=== PATIENT | female | born 1930 | race Caucasian/White ===

== ENCOUNTER 2016-09-26 21:18 | Observation (INO) | payer MEDICARE, OTHER ==
[~2016-09-26] VITALS: Ht 167.6 cm; Wt 89.2 kg
[2016-09-26 21:31] VITALS: BP 152/77; PULSE 72; RESP 20; TEMP 97.9; O2SAT 94
[2016-09-26] MEDS ORDERED: ONDANSETRON HCL 4 MG/2 ML VIAL IVP ONE (22:00)
[2016-09-26] MEDS ORDERED: SODIUM CHLORIDE 0.9% FLUSH 10 ML FLUSH IV FLUSH PRN (22:00)
--- NOTE | 2016-09-26 22:02 | PD ---
HPI Chief Complaint: GI Complaint Time Seen by Provider: 21:52 Travel History International Travel<30 days: No Contact w/Intl Traveler<30days: No Traveled to known affect area: No History of Present Illness HPI 86-year-old female with history of hypertension dyslipidemia and hypothyroidism presents to the emergency department by private transportation for evaluation of nausea abdominal pain and dizziness. Patient has been having ongoing nausea and dizziness and intermittent abdominal pain 2 weeks. Patient reports 2 weeks ago on Saturday she had such severe nausea that she decided to go to bed and have a ball at her bedside in case she vomited and she did this during the daytime and awakened on her floor beside her bed during the night time thinking that she must have had loss of consciousness. Patient states she was very concerned but did not seek out medical attention. Patient states symptoms have persisted and this evening symptoms again return to the severity to her she felt a skin is if she might have a syncopal episode but did not do so. Patient contacted her friend to bring her to the emergency room. Patient reports when her abdominal pain is severe it is generalized and 8/10 in intensity. Patient states her nausea is quite severe and present at this time but denies any chest pain or abdominal pain or back pain. Pain is nonradiating. Patient states she' s experienced no chest pain or shortness of breath sweats referred neck jaw back shoulder or arm pain and denies any syncope or near syncope at this time. No recent long distance travel protracted bedrest. Patient has not noticed any lower extremity pain or swelling. Patient denies any fever or chills. Patient denies diarrhea. Patient states she's had no vomiting. Patient states she has felt bloated and has had no weight gain or weight loss. Patient denies dysuria frequency or urgency. Patient denies any palpitations. Patient is unable to identify exacerbating or alleviating factors except that when she does eat or drink anything her symptoms seem to worsen. Patient has not experienced any confusion visual disturbance headache upper or lower extremity numbness tingling or weakness or ataxia of gait. Currently symptoms and discomfort are 0 /10 intensity. PFSH Past Medical History Narrative Medical Hypertension dyslipidemia hypothyroidism; denies surgery; no tobacco use no alcohol use; nursing notes reviewed Social History Alcohol Use: No Tobacco Use: No Allergies-Medications (Allergen,Severity, Reaction): Coded Allergies: No Known Allergies (Unverified , 09/26/16) Reported Meds & Prescriptions Reported Meds & Active Scripts Active Reported B12 (Cyanocobalamin) 1,000 Mcg Tab 1,000 Mcg PO DAILY Fish Oil ([place]-3 Fatty Acids) 1,000 Mg Cap 1,000 Mg PO DAILY [Cholesterol Med] 1 Tab PO DAILY Levothyroxine (Levothyroxine Sodium) 88 Mcg Tab 88 Mcg PO DAILY [Blood Pressure Med] 1 Tab PO DAILY Narrative Medication Blood pressure medication and cholesterol medication Synthroid Review of Systems Except as stated in HPI: all other systems reviewed are Neg General / Constitutional: No: Fever, Chills Eyes: No: Visual changes HENT: No: Headaches, Neck Stiffness, Neck Pain Cardiovascular: Positive: Syncope, No: Chest Pain or Discomfort, Palpitations , Diaphoresis Respiratory: No: Shortness of Breath, Orthopnea, Pleuritic Pain Gastrointestinal: Positive: Nausea, Abdominal Pain, No: Vomiting, Diarrhea, Hematemesis, Hematochezia, Loss of Appetite Genitourinary: No: Urgency, Frequency, Dysuria, Flank Pain Musculoskeletal: No: Myalgias, Arthralgias, Edema, Pain Skin: No Rash Neurologic: Positive: Weakness, Syncope (times one 2 weeks ago), No: Dizziness , Focal Abnormalities, Tremor, Ataxia, Headache, Change in Mentation, Slurred Speech, Paresthesia, Incontinence, Seizures, Sensory Disturbance Psychiatric: No: Anxiety Endocrine: No: Heat Intolerance Hematologic/Lymphatic: No: Easy Bruising Physical Exam Narrative GENERAL: Well-developed well-nourished female in no acute distress no respiratory distress SKIN: Warm and dry. HEAD: Atraumatic. Normocephalic. EYES: Pupils equal and round. No scleral icterus. No injection or drainage. ENT: No nasal bleeding or discharge. Mucous membranes pink and moist. NECK: Trachea midline. No JVD. CARDIOVASCULAR: Regular rate and rhythm. RESPIRATORY: No accessory muscle use. Clear to auscultation. Breath sounds equal bilaterally. GASTROINTESTINAL: Abdomen soft, non-tender, nondistended. Hepatic and splenic margins not palpable. No palpable pulsatile mass. MUSCULOSKELETAL: Extremities without clubbing, cyanosis, or edema. No obvious deformities. Radial and dorsalis pedis pulses 2+ to palpation. NEUROLOGICAL: Awake and alert. No obvious cranial nerve deficits. Motor grossly within normal limits. Five out of 5 muscle strength in the arms and legs. Normal speech. PSYCHIATRIC: Appropriate mood and affect; insight and judgment normal. Data Data Last Documented VS Vital Signs Date Time Temp Pulse Resp B/P Pulse Ox O2 Delivery O2 Flow Rate FiO2 09/26/16 23:45 58 18 171/76 94 Room Air 09/26/16 21:31 97.9 Orders Complete Blood Count With Diff (09/26/16 21:53) Comprehensive Metabolic Panel (09/26/16 21:53) Lipase (09/26/16 21:53) Lactic Acid (09/26/16 21:53) Prothrombin Time / Inr (Pt) (09/26/16 21:53) Act Partial Throm Time (Ptt) (09/26/16 21:53) Urinalysis - C+S If Indicated (09/26/16 21:53) Ct Abd/Pel W Iv Contrast(Rout) (09/26/16 21:53) Iv Access Insert/Monitor (09/26/16 21:53) Ecg Monitoring (09/26/16 21:53) Oximetry (09/26/16 21:53) Ondansetron Inj (Zofran Inj) (09/26/16 22:00) Sodium Chloride 0.9% Flush (Ns Flush) (09/26/16 22:00) Electrocardiogram (09/26/16 21:53) Chest, Single Ap (09/26/16 21:53) Orthostatic Vital Signs (09/26/16 21:53) Ct Brain W/O Iv Contrast(Rout) (09/26/16 ) Magnesium (Mg) (09/26/16 21:53) Ckmb (Isoenzyme) Profile (09/26/16 21:53) Troponin I (09/26/16 21:53) Iohexol 350 Inj (Omnipaque 350 Inj) (09/26/16 23:13) Place In Observation (09/26/16 ) Vital Signs (Adult) Q4H (09/26/16 23:56) Activity Oob With Assistance (09/26/16 23:56) Gum Machine Operator / Telemetry .CONTINUOUS (09/26/16 23:56) Intake + Output ALEENA.QSHIFT (09/26/16 23:56) Diet Heart Healthy (09/27/16 Breakfast) Sodium Chloride 0.9% Flush (Ns Flush) (09/27/16 00:00) Sodium Chloride 0.9% Flush (Ns Flush) (09/27/16 09:00) Basic Metabolic Panel (Bmp) (09/27/16 06:00) Complete Blood Count With Diff (09/27/16 06:00) Pt Request For Service (09/26/16 23:56) Case Management Consult (09/26/16 23:56) Naloxone Inj (Narcan Inj) (09/27/16 00:00) Consult Gastroenterology (09/26/16 ) Admit Order (Ed Use Only) (09/26/16 ) ^ Saline Lock (09/26/16 23:59) Resp Oxygen Saw C Titrat 1-4 L (09/26/16 ) Notify Dr: Other (09/26/16 23:59) Sodium Chloride 0.9% Flush (Ns Flush) (09/27/16 09:00) Sodium Chloride 0.9% Flush (Ns Flush) (09/27/16 00:00) Labs Laboratory Tests Test 09/26/16 22:25 White Blood Count 10.7 TH/MM3 Red Blood Count 4.77 MIL/MM3 Hemoglobin 14.6 GM/DL Hematocrit 43.8 % Mean Corpuscular Volume 91.8 FL Mean Corpuscular Hemoglobin 30.6 PG Mean Corpuscular Hemoglobin 33.4 % Concent Red Cell Distribution Width 13.8 % Platelet Count 240 TH/MM3 Mean Platelet Volume 9.2 FL Neutrophils (%) (Auto) 62.8 % Lymphocytes (%) (Auto) 25.6 % Monocytes (%) (Auto) 6.5 % Eosinophils (%) (Auto) 2.8 % Basophils (%) (Auto) 2.3 % Neutrophils # (Auto) 6.8 TH/MM3 Lymphocytes # (Auto) 2.7 TH/MM3 Monocytes # (Auto) 0.7 TH/MM3 Eosinophils # (Auto) 0.3 TH/MM3 Basophils # (Auto) 0.2 TH/MM3 CBC Comment DIFF FINAL Differential Comment Prothrombin Time 10.6 SEC Prothromb Time International 1.0 RATIO Ratio Activated Partial 28.6 SEC Thromboplast Time Sodium Level 137 MEQ/L Potassium Level 4.2 MEQ/L Chloride Level 105 MEQ/L Carbon Dioxide Level 23.6 MEQ/L Anion Gap 8 MEQ/L Blood Urea Nitrogen 13 MG/DL Creatinine 0.68 MG/DL Estimat Glomerular Filtration 82 ML/MIN Rate Random Glucose 128 MG/DL Lactic Acid Level 0.9 mmol/L Calcium Level 9.5 MG/DL Magnesium Level 2.2 MG/DL Total Bilirubin 0.4 MG/DL Aspartate Amino Transf 33 U/L (AST/SGOT) Alanine Aminotransferase 37 U/L (ALT/SGPT) Alkaline Phosphatase 76 U/L Total Creatine Kinase 36 U/L Troponin I LESS THAN 0.02 NG/ML Total Protein 8.3 GM/DL Albumin 3.6 GM/DL Lipase 209 U/L MDM Medical Decision Making Medical Screen Exam Complete: Yes Emergency Medical Condition: Yes Medical Record Reviewed: Yes Interpretation(s) EKG: Normal sinus rhythm rate 60 LAD interventricular conduction delay no acute ST elevation or injury pattern noted Vital Signs Date Time Temp Pulse Resp B/P Pulse Ox O2 Delivery O2 Flow Rate FiO2 09/26/16 22:56 60 14 160/81 57 16 137/72 71 115/63 09/26/16 22:30 60 18 145/82 96 Room Air 09/26/16 22:30 96 Room Air 09/26/16 21:31 97.9 72 20 152/77 94 CBC & BMP Diagram 09/26/16 22:25 Last Impressions Chest X-Ray 09/26/16 2153 Signed Impressions: Service Date/Time: Monday, September 26, 2016 22:00 - CONCLUSION: The lungs are clear. Rico Chaudhary MD Head CT 09/26/16 0000 Signed Impressions: Service Date/Time: Monday, September 26, 2016 22:56 - CONCLUSION: Negative noncontrast CT. Gabriel Perales MD CT abd/pel: CONCLUSION: 1. Focal stricture with apple core like appearance in the mid ascending colon with dilatation, wall thickening and enhancement of the cecum. This is of concern for colon cancer. 2. Abnormal bowel gas pattern which could indicate an early or partial bowel obstruction with dilatation of the small bowel with air-fluid levels. 3. 2 low-attenuation lesions in the liver of concern for metastatic disease. 4. Parapelvic cysts in both kidneys. Gabriel Perales MD on September 26, 2016 at 23:29 Board Certified Radiologist. This report was verified electronically. Differential Diagnosis Abdominal pain, ACS, MD, abdominal aortic aneurysm, colitis, arrhythmia, electrolyte disturbance, PE Narrative Course Patient placed on monitoring engineer IV access obtained specimens collected and sent for resulting EKG ordered and orthostatic measurements obtained Orthostatic measurements were abnormal with significant drop in blood pressure from supine to standing and mild increase in heart rate from supine to standing with patient asymptomatic Lab values grossly within normal range; chest x-ray reveals no acute abnormality CT brain noncontrast reveals no acute abnormal process CT abdomen and pelvis reveals apple core narrowing of the proximal intestine concerning for colon cancer and evidence of intestinal wall thickening and intermittent mild dilatation concerning for early or partial small bowel obstruction with 2 this of lesions to the liver concerning for metastatic disease. Patent with progressive symptoms over the past 2 weeks with episode described of possible syncopal event 2 weeks ago Saturday with increasing nausea without vomiting and intermittent bloating sensation with worsening symptoms this evening. Plan will be to admit patient for further evaluation of abnormalities identified by CT imaging and bowel rest. Call placed to [facility] service. Rectal exam performed normal sphincter tone brown stool in rectal vault that is Hemoccult negative. HemaPrompt Point of Care Internal Pos. & Neg. Controls: Passed Fecal Specimen Occult Blood: Negative Physician Communication Physician Communication call placed to [facility] service for admission --discussed with Dr Magana Diagnosis Primary Impression: Nausea Additional Impressions: Partial small bowel obstruction Syncope Admitting Information Admitting Physician Requests: Admit Madeleine Segal MD Sep 26, 2016 22:02
[2016-09-26] MEDS ORDERED: BLOOD PRESSURE MED PO (22:15)
[2016-09-26] MEDS ORDERED: LEVO88TA2 PO (22:15)
[2016-09-26] MEDS ORDERED: CHOLESTEROL MED PO (22:15)
[2016-09-26] MEDS ORDERED: CYAN1TAB24 PO (22:15)
[2016-09-26] MEDS ORDERED: FISH1000 PO (22:15)
[2016-09-26 22:30] VITALS: BP 145/82; PULSE 60; RESP 18; O2SAT 96
[2016-09-26 22:33] LABS: AUTOMATED NEUTROPHIL # 6.8 TH/MM3 (1.8-7.7); BASOPHIL # 0.2 TH/MM3 (0-0.2); BASOPHIL % 2.3 % (0.0-2.0); EOSINOPHIL # 0.3 TH/MM3 (0-0.4); EOSINOPHIL % 2.8 % (0.0-4.0); HEMATOCRIT 43.8 % (35.0-46.0); HEMO FLAGS DIFF FINAL; LYMPH % 25.6 % (9.0-44.0); LYMPHOCYTE # 2.7 TH/MM3 (1.0-4.8); MEAN CELL VOLUME 91.8 FL (80.0-100.0); MEAN CORPUSCULAR HEMOGLOBIN 30.6 PG (27.0-34.0); MEAN CORPUSCULAR HGB CONC 33.4 % (32.0-36.0); MONO % 6.5 % (0.0-8.0); NEUT % 62.8 % (16.0-70.0); PLATELET COUNT 240 TH/MM3 (150-450); RED BLOOD COUNT 4.77 MIL/MM3 (4.00-5.30); RED CELL DISTRIBUTION WIDTH 13.8 % (11.6-17.2); WHITE BLOOD COUNT 10.7 TH/MM3 (4.0-11.0)
--- NOTE | 2016-09-26 22:39 | RADRPT ---
EXAM DATE/TIME: 09/26/2016 22:00 [facility] COMPARISON: No previous studies available for comparison. INDICATIONS : Short of breath. MEDICAL HISTORY : None. SURGICAL HISTORY : None. ENCOUNTER: Initial ACUITY: 1 day PAIN SCORE: 0/10 LOCATION: Bilateral chest FINDINGS: A single view of the chest demonstrates the lungs to be symmetrically aerated without evidence of mas s, infiltrate or effusion. No evidence of pneumothorax. The cardiomediastinal contours are unremark able. Osseous structures are intact. CONCLUSION: The lungs are clear. Rico Chaudhary MD on September 26, 2016 at 22:37 Board Certified Radiologist. This report was verified electronically.
[2016-09-26 22:47] LABS: CHLORIDE 105 MEQ/L (98-107); POTASSIUM 4.2 MEQ/L (3.5-5.1); SODIUM (NA) 137 MEQ/L (136-145)
[2016-09-26 22:51] LABS: ANION GAP 8 MEQ/L (5-15); BICARBONATE 23.6 MEQ/L (21.0-32.0); BLOOD UREA NITROGEN 13 MG/DL (7-18); MAGNESIUM 2.2 MG/DL (1.5-2.5)
[2016-09-26 22:52] LABS: APTT (PATIENT) 28.6 SEC (24.3-30.1); PROTHROMBIN TIME - PATIENT 10.6 SEC (9.8-11.6)
[2016-09-26 22:54] LABS: ALT (GPT) 37 U/L (10-53); AST (GOT) 33 U/L (15-37); GLOMERULAR FILTRATION RATE 82 ML/MIN (>89)
[2016-09-26 22:55] LABS: TOTAL BILIRUBIN ADULT 0.4 MG/DL (0.2-1.0)
[2016-09-26 22:56] VITALS: BP_SYST 115; BP_SYST 137; BP_SYST 160; BP_DIAS 63; BP_DIAS 72; BP_DIAS 81; RESP 14; RESP 16
[2016-09-26 22:56] LABS: ALKALINE PHOSPHATASE 76 U/L (45-117)
[2016-09-26 22:58] LABS: CREATINE KINASE 36 U/L (26-192)
[2016-09-26] MEDS ORDERED: IOHEXOL 350 MG/ML 10 ML VIAL (for RAD DIAG) IV ONE (23:13)
--- NOTE | 2016-09-26 23:30 | RADRPT ---
EXAM DATE/TIME: 09/26/2016 22:56 [facility] COMPARISON: No previous studies available for comparison. INDICATIONS : Syncopal episode. RADIATION DOSE: 66.53 CTDIvol (mGy) MEDICAL HISTORY : Hypertension. SURGICAL HISTORY : None. ENCOUNTER: Initial ACUITY: 3 weeks PAIN SCALE: 0/10 LOCATION: cranial TECHNIQUE: Multiple contiguous axial images were obtained of the head. Using automated exposure control and adj ustment of the mA and/or kV according to patient size, radiation dose was kept as low as reasonably a chievable to obtain optimal diagnostic quality images. DICOM format image data is available electro nically for review and comparison. FINDINGS: CEREBRUM: The ventricles are normal for age. No evidence of midline shift, mass lesion, hemorrhage or acute in farction. No extra-axial fluid collections are seen. POSTERIOR FOSSA: The cerebellum and brainstem are intact. The 4th ventricle is midline. The cerebellopontine angle i s unremarkable. EXTRACRANIAL: The visualized portion of the orbits is intact. SKULL: The calvaria is intact. No evidence of skull fracture. CONCLUSION: Negative noncontrast CT. Gabriel Perales MD on September 26, 2016 at 23:28 Board Certified Radiologist. This report was verified electronically.
--- NOTE | 2016-09-26 23:40 | RADRPT ---
EXAM DATE/TIME: 09/26/2016 22:59 [facility] COMPARISON: No previous studies available for comparison. INDICATIONS : Abdominal pain with nausea and vomiting. IV CONTRAST: 100 cc Omnipaque 350 (iohexol) IV ORAL CONTRAST: No oral contrast ingested. RADIATION DOSE: 20.07 CTDIvol (mGy) MEDICAL HISTORY : Hypertension. SURGICAL HISTORY : None. ENCOUNTER: Initial ACUITY: 2 weeks PAIN SCALE: 5/10 LOCATION: abdomen TECHNIQUE: Volumetric scanning of the abdomen and pelvis was performed. Using automated exposure control and ad justment of the mA and/or kV according to patient size, radiation dose was kept as low as reasonably achievable to obtain optimal diagnostic quality images. DICOM format image data is available electro nically for review and comparison. FINDINGS: LOWER LUNGS: The visualized lower lungs are clear. LIVER: Homogeneous density with 2 subtle low attenuation lesions. One is located in the left lobe measuring up to approximately 1.9 x 1.7 cm. The second is located in the upper right lobe and measures approxim ately 1.4 x 1.4 cm. The gallbladder is unremarkable. There is mild hepatic steatosis. There is no dil ation of the biliary tree. No calcified gallstones. SPLEEN: Normal size without lesion. PANCREAS: Within normal limits. KIDNEYS: Normal in size and shape. There is no solid mass, stone or hydronephrosis. There are parapelvic cyst s bilaterally. ADRENAL GLANDS: Within normal limits. VASCULAR: There is no aortic aneurysm. BOWEL/MESENTERY: Scattered diverticuli are noted throughout the colon. There is a focal apparent stricture involving t he mid ascending colon best visualized on coronal image #48. This has been apple core like appearance . The cecum is mildly dilated and there is enhancement and thickening of the wall of the cecum and ar ea of stricture. There are multiple loops of borderline dilated small bowel with multiple air-fluid l evels in the mid and distal small bowel. There is no free air or fluid. ABDOMINAL WALL: Within normal limits. RETROPERITONEUM: There is no lymphadenopathy. BLADDER: No wall thickening or mass. REPRODUCTIVE: Within normal limits. INGUINAL: There is no lymphadenopathy or hernia. MUSCULOSKELETAL: Within normal limits for patient age. CONCLUSION: 1. Focal stricture with apple core like appearance in the mid ascending colon with dilatation, wall t hickening and enhancement of the cecum. This is of concern for colon cancer. 2. Abnormal bowel gas pattern which could indicate an early or partial bowel obstruction with dilatat ion of the small bowel with air-fluid levels. 3. 2 low-attenuation lesions in the liver of concern for metastatic disease. 4. Parapelvic cysts in both kidneys. Gabriel Perales MD on September 26, 2016 at 23:29 Board Certified Radiologist. This report was verified electronically.
[2016-09-26 23:45] VITALS: BP 171/76; PULSE 58; RESP 18; O2SAT 94
[2016-09-27] VITALS (9 sets, daily range): BP systolic 127–152; BP diastolic 61–81; PULSE 53–59; RESP 19–20; TEMP 95.8–97.8; O2SAT 93–96
[2016-09-27] MEDS ORDERED: NALOXONE HCL 0.4 MG/ML AMP IV PRN
[2016-09-27] MEDS ORDERED: SODIUM CHLORIDE 0.9% FLUSH 10 ML FLUSH IVF PRN
[2016-09-27] MEDS ORDERED: SODIUM CHLORIDE 0.9% FLUSH 10 ML FLUSH IV FLUSH PRN
[2016-09-27 02:48] LABS: BLOOD, URINE NEG (NEG); GLUCOSE,URINE NEG (NEG); KETONE, URINE NEG (NEG); NITRITE,URINE NEG (NEG)
[2016-09-27 02:56] LABS: COMMENT (UR) CULT NOT INDICATED; CULTURE IF INDICATED CULT NOT INDICATED; RBC, URINE 0-2 /hpf (0-3); URINE COLOR YELLOW (YELLW/STRAW); WBC, URINE 0-2 /hpf (0-5)
[2016-09-27 05:59] LABS: AUTOMATED NEUTROPHIL # 3.9 TH/MM3 (1.8-7.7); BASOPHIL % 0.4 % (0.0-2.0); EOSINOPHIL # 0.2 TH/MM3 (0-0.4); EOSINOPHIL % 2.4 % (0.0-4.0); HEMATOCRIT 35.6 % (35.0-46.0); HEMO FLAGS DIFF FINAL; LYMPH % 39.5 % (9.0-44.0); MEAN CELL VOLUME 91.2 FL (80.0-100.0); MEAN CORPUSCULAR HEMOGLOBIN 31.4 PG (27.0-34.0); MEAN CORPUSCULAR HGB CONC 34.4 % (32.0-36.0); MONO % 6.7 % (0.0-8.0); PLATELET COUNT 166 TH/MM3 (150-450); RED CELL DISTRIBUTION WIDTH 12.9 % (11.6-17.2); WHITE BLOOD COUNT 7.6 TH/MM3 (4.0-11.0)
[2016-09-27 06:06] LABS: POTASSIUM 3.9 MEQ/L (3.5-5.1)
[2016-09-27 06:09] LABS: BICARBONATE 26.8 MEQ/L (21.0-32.0)
[2016-09-27] MEDS ORDERED: SODIUM CHLORIDE 0.9% FLUSH 10 ML FLUSH IV FLUSH SCH (09:00)
[2016-09-27] MEDS: SODIUM CHLORIDE 0.9% FLUSH 10 ML FLUSH IV FLUSH SCH ×2 (09:01→21:00)
--- NOTE | 2016-09-27 11:33 | HHI.HP ---
[facility] Rush Galeano MD Admission Diagnosis nausea; early SBO; possible colon cancer; syncope x 1 Diagnoses: (1) Partial small bowel obstruction Diagnosis: Principal (2) Mass of colon Diagnosis: Principal Chief Complaint: Abdominal pain Travel History International Travel<30 Days: No Contact w/Intl Traveler <30 Da: No Traveled to Known Affected Are: No History of Present Illness Written by Chance Hale, acting as scribe for Dr. Leach on 09/27/16 at 11: 26. 86-year-old female with known history of hypertension, hyperlipidemia , hypothyroidism who presented to hospital because of abdominal pain. Patient states that the pain started 2 weeks ago. He states that whenever she eats she gets abdominal pain which is diffuse throughout her abdomen. She states that she has constipation all the time and usually whenever she takes something for constipation which her primary doctor recommended prune juice that she usually has a normal bowel movement at that time. She denies any decreased diameter of stool. Patient states that she does get associated lightheadedness, dizziness, nausea with her abdominal pain. The pain usually goes away but is always antagonized by eating. Because the pain did not get any better and she had increased nausea with lightheadedness she called her friend who brought her to the hospital for evaluation. Patient had workup done a CT finding indicating upper core lesion of the ascending colon with signs of partial small bowel obstruction. Because findings the ER physician recommended patient be admitted the hospital for evaluation management. Patient denies any change in appetite, weight loss or weight gain. Patient states that she has never had colonoscopy performed before. She has never been seen by a flexographic printing machinist. Review of Systems Constitutional: COMPLAINS OF: Dizziness Gastrointestinal: COMPLAINS OF: Abdominal pain, Constipation, Nausea Except as stated in HPI: all other systems reviewed are Neg Past Family Social History Past Medical History Hypertension Hyperlipidemia Hypothyroidism Past Surgical History No previous surgeries Reported Medications Reported Meds & Active Scripts Active Reported B12 (Cyanocobalamin) 1,000 Mcg Tab 1,000 Mcg PO DAILY Fish Oil ([place]-3 Fatty Acids) 1,000 Mg Cap 1,000 Mg PO DAILY [Cholesterol Med] 1 Tab PO DAILY Levothyroxine (Levothyroxine Sodium) 88 Mcg Tab 88 Mcg PO DAILY [Blood Pressure Med] 1 Tab PO DAILY Allergies: Coded Allergies: No Known Allergies (Unverified , 09/26/16) Family History Reviewed and unremarkable Social History Patient denies any tobacco, alcohol or illicit drugs Physical Exam Vital Signs Vital Signs Date Time Temp Pulse Resp B/P Pulse Ox O2 Delivery O2 Flow Rate FiO2 09/27/16 10:33 96 21 09/27/16 09:06 96.7 54 19 139/80 96 09/27/16 03:20 93 21 09/27/16 01:02 97.8 58 18 127/61 94 09/27/16 01:00 97.5 53 20 148/78 95 09/27/16 01:00 54 09/26/16 23:45 58 18 171/76 94 Room Air 09/26/16 22:56 60 14 160/81 57 16 137/72 71 115/63 09/26/16 22:30 60 18 145/82 96 Room Air 09/26/16 22:30 96 Room Air 09/26/16 21:31 97.9 72 20 152/77 94 Physical Exam GENERAL: Well-developed, well-nourished. alert and orientated HEENT: Head is normocephalic without any lesions or masses noted. Facial features are symmetric. Eyes: Pupils equal round reactive to light. Extraocular muscles are intact. Conjunctivae were clear. Oropharyngeal: Pharynx without any erythema edema. Tongue is midline without deviation. Buccal mucosa is moist without any masses or lesions NECK: Supple without any masses. Trachea midline no deviation. No JVD, no bruits are appreciated CARDIAC: Regular rhythm, regular rate. S1/S2 are heard. No murmurs gallops or rubs. LUNGS: Clear to auscultation bilaterally. No wheeze, rhonchi or rales. No use of accessory muscles on inspiration or expiration. ABDOMEN: Soft, nontender. Nondistended. Bowel sounds heard in all 4 quadrants. No organomegaly or masses. Negative rebound, negative guarding EXTREMITIES: No edema, pulses are equal bilaterally. NEUROLOGY: Mood and affect appear appropriate. Cranial nerves II through XII grossly intact. Muscle strength 5/5 in upper and lower extremities bilaterally. Deep tendon reflexes are 2+ in upper and lower extremities bilaterally. Laboratory Laboratory Tests Test 09/26/16 09/27/16 09/27/16 22:25 02:40 05:33 White Blood Count 10.7 7.6 Red Blood Count 4.77 3.90 Hemoglobin 14.6 12.2 Hematocrit 43.8 35.6 Mean Corpuscular Volume 91.8 91.2 Mean Corpuscular Hemoglobin 30.6 31.4 Mean Corpuscular Hemoglobin 33.4 34.4 Concent Red Cell Distribution Width 13.8 12.9 Platelet Count 240 166 Mean Platelet Volume 9.2 8.6 Neutrophils (%) (Auto) 62.8 51.0 Lymphocytes (%) (Auto) 25.6 39.5 Monocytes (%) (Auto) 6.5 6.7 Eosinophils (%) (Auto) 2.8 2.4 Basophils (%) (Auto) 2.3 0.4 Neutrophils # (Auto) 6.8 3.9 Lymphocytes # (Auto) 2.7 3.0 Monocytes # (Auto) 0.7 0.5 Eosinophils # (Auto) 0.3 0.2 Basophils # (Auto) 0.2 0.0 CBC Comment DIFF FINAL DIFF FINAL Differential Comment Prothrombin Time 10.6 Prothromb Time International 1.0 Ratio Activated Partial 28.6 Thromboplast Time Sodium Level 137 141 Potassium Level 4.2 3.9 Chloride Level 105 107 Carbon Dioxide Level 23.6 26.8 Anion Gap 8 7 Blood Urea Nitrogen 13 11 Creatinine 0.68 0.55 Estimat Glomerular Filtration 82 105 Rate Random Glucose 128 106 Lactic Acid Level 0.9 Calcium Level 9.5 9.1 Magnesium Level 2.2 Total Bilirubin 0.4 Aspartate Amino Transf 33 (AST/SGOT) Alanine Aminotransferase 37 (ALT/SGPT) Alkaline Phosphatase 76 Total Creatine Kinase 36 Troponin I LESS THAN 0.02 Total Protein 8.3 Albumin 3.6 Lipase 209 Urine Color YELLOW Urine Turbidity CLEAR Urine pH 5.0 Urine Specific [place] GREATER THAN 1.035 Urine Protein NEG Urine Glucose (UA) NEG Urine Ketones NEG Urine Occult Blood NEG Urine Nitrite NEG Urine Bilirubin NEG Urine Leukocyte Esterase NEG Urine RBC 0-2 Urine WBC 0-2 Urine Squamous Epithelial 6-8 Cells Urine Bacteria NONE Microscopic Urinalysis Comment CULT NOT INDICATED Result Diagram: 09/27/1633 09/27/16532 Imaging Last Impressions Chest X-Ray 09/26/162152 Signed Impressions: Service Date/Time: Monday, September 26, 2016 22:00 - CONCLUSION: The lungs are clear. Rico Chaudhary MD Abdomen/Pelvis CT 09/26/162152 Signed Impressions: Service Date/Time: Monday, September 26, 2016 22:59 - CONCLUSION: 1. Focal stricture with apple core like appearance in the mid ascending colon with dilatation, wall thickening and enhancement of the cecum. This is of concern for colon cancer. 2. Abnormal bowel gas pattern which could indicate an early or partial bowel obstruction with dilatation of the small bowel with air-fluid levels. 3. 2 low-attenuation lesions in the liver of concern for metastatic disease. 4. Parapelvic cysts in both kidneys. Gabriel Perales MD Head CT 09/26/16 0000 Signed Impressions: Service Date/Time: Monday, September 26, 2016 22:56 - CONCLUSION: Negative noncontrast CT. Gabriel Perales MD Assessment and Plan Assessment and Plan Abdominal pain with associated CT finding of apical core lesion in the ascending colon with partial small bowel obstruction Highly suspicious for malignancy CT scan does show apical core like appearing lesion in the mid ascending colon with dilatation, wall thickening and enhancement of the cecum. Also 2 low attenuation lesions in the liver concerning for metastatic disease. GI consultation has been requested Consult colorectal specialist Obtain tumor markers Start IV fluids Start pain control Clear liquid diet Hypertension, hyperlipidemia Continue home medications DVT prevention Sequential compression devices This note was transcribed by betsy Hale. I, Dr. Imelda Leach personally performed the history, physical exam, and medical decision making; and confirmed the accuracy of the information in the transcribed note. Authenticated by Dr. Imelda Leach on 09/27/16 at 11:26. Chance Hale Sep 27, 2016 11:33 Imelda Leach MD Sep 28, 2016 13:45
[2016-09-27] MEDS ORDERED: ACETAMINOPHEN/HYDROcodone 325 MG/5 MG TAB PO PRN (12:15)
[2016-09-27] MEDS ORDERED: MORPHINE SULFATE 4 MG/ML INJ IV PUSH PRN (12:15)
[2016-09-27] MEDS: SODIUM CHLOR 0.9% 1000 ML INJ 1,000 ML IV SCH ×2 (12:28→23:45)
--- NOTE | 2016-09-27 14:40 | EKG ---
Date Performed: 09/26/2016 Time Performed: 22:04:42 PTAGE: 86 years EKG: Sinus rhythm MARKED LEFT AXIS DEVIATION INTRAVENTRICULAR CONDUCTION DELAY ABNORMAL ECG NO PREVIOUS TRACING DOCTOR: Ana Maria Jain Interpretating Date/Time 09/27/2016 14:39:12
[2016-09-27] MEDS ORDERED: MAGNESIUM CITRATE SOLN 300 ML BTL PO ONE (15:30)
[2016-09-27] MEDS ORDERED: SOD PHOSPHATE/SOD BIPHOSPHATE (ADULT) ENEMA 133ML PR ONE (15:30)
--- NOTE | 2016-09-27 17:23 | MB ---
cc: MAYTE BYNUM M.D., ROSANNE DATE OF CONSULTATION: 09/28/2016 REASON FOR CONSULTATION: Abnormal CT scan possible colon cancer. HISTORY OF PRESENT ILLNESS: Miss Crooks is an 86-year-old lady, basically presents with about 2 weeks of lower abdominal discomfort associated with a change in her bowels. She says she is having more and more difficulty with constipation and is taking prunes to move her bowels, her last bowel movement was yesterday. She says she feels like she wants to throw up but has not actually had any nausea, vomiting. A CT scan on admission suggests a possible partial blockage in the ascending colon suggestive of colon cancer. The patient has never had any previous GI workup. REVIEW OF SYSTEMS Nausea, otherwise no GI symptoms at this time. PAST MEDICAL HISTORY: Hypertension. Hyperlipidemia. Hypothyroidism. PAST SURGICAL HISTORY: None given. MEDICATIONS 1. On admission B12. 2. Levothyroxine 3. Medicine for blood pressure 4. Medicine for cholesterol. ALLERGIES None documented FAMILY HISTORY: family history is noncontributory. SOCIAL HISTORY No tobacco, no alcohol reported. PHYSICAL EXAMINATION: IN GENERAL: The physical examination reveals a well-nourished lady in no apparent distress. VITAL SIGNS: The Vital signs are stable. HEAD/NECK: Head and neck examination anicteric sclerae. CHEST: Bilateral air entry with rales. ABDOMEN: The abdomen is soft. Nontender, no hepatosplenomegaly. Bowel sounds are present. CENTRAL NERVOUS SYSTEM; Exam is nonfocal. RECTUM: The rectal examination was deferred at this time. LABORATORY FINDINGS: The labs revealed a hemoglobin of 12.2, creatinine is 0.55, amylase, and lipase are normal. CT ABDOMEN Pelvis is suggestive of an apple core lesion in the ascending colon partial bowel obstruction. IMPRESSION Partial bowel obstruction, possible colon cancer. RECOMMENDATIONS Colonoscopy discussed with the patient. She is agreeable. Gentle bowel prep will be undertaken today. Fleet's enemas in the morning. Colonoscopy planned for tomorrow morning. Further recommendations to follow. Thank you for this referral. MD MERCED De La Garza/larry /3:20 PM /4:51 PM
[2016-09-27] MEDS ORDERED: PRAV40TA2 PO (18:34)
[2016-09-27] MEDS ORDERED: NADO20TA PO (18:34)
[2016-09-27] MEDS ORDERED: RAMI5CAP PO (18:34)
[2016-09-27] MEDS ORDERED: LEVO100T5 PO (18:34)
[2016-09-28] VITALS: BP 127/75; PULSE 57; RESP 18; TEMP 97.9; O2SAT 93
[2016-09-28] MEDS ORDERED: SOD PHOSPHATE/SOD BIPHOSPHATE (ADULT) ENEMA 133ML PR SCH (07:15)
[2016-09-28] MEDS: SODIUM CHLORIDE 0.9% FLUSH 10 ML FLUSH IV FLUSH SCH (07:33)
[2016-09-28 07:55] VITALS: BP 121/60; PULSE 63; RESP 16; TEMP 97.9; O2SAT 93
[2016-09-28] MEDS ORDERED: PROPOFOL 200 MG/20 ML AMP IV PUSH ONE (08:42)
--- NOTE | 2016-09-28 08:53 | HHI.GIFU ---
Subjective Remarks feels ok, no abdominal pain, no bleeding colonoscopy showed a near obstructing mass in the ascending colon Bx done Objective Vitals I&O Vital Signs Date Time Temp Pulse Resp B/P Pulse Ox O2 Delivery O2 Flow Rate FiO2 09/28/16 07:55 97.9 63 16 121/60 93 09/28/16 00:00 97.9 57 18 127/75 93 09/27/16 20:00 97.2 59 20 137/76 95 09/27/16 19:47 94 21 09/27/16 16:53 97.7 56 19 127/69 94 09/27/16 13:23 95.8 57 19 152/81 93 09/27/16 10:33 96 21 09/27/16 09:06 96.7 54 19 139/80 96 I/O 09/27/16 09/27/16 09/27/16 09/28/16 09/28/16 09/28/16 07:00 15:00 23:00 07:00 15:00 23:00 Intake Total 500 ml 480 ml 1640 ml Output Total 300 ml Balance -300 ml 500 ml 480 ml 1640 ml Intake Oral 500 ml 480 ml 240 ml IV Total 1400 ml Output Urine Total 300 ml # Voids 2 3 2 # Bowel Movements 3 2 Physical Exam HEENT: Pupils round and reactive to light; normocephalic; atraumatic; no jaundice. Throat is clear. NECK: Neck is supple, no JVD, no lymphadenopathy. CHEST: Chest is clear to auscultation and percussion. CARDIAC: Regular rate and rhythm with no murmur gallop or rubs. ABDOMEN: Soft, nondistended, nontender; no hepatosplenomegaly; bowel sounds are present in all four quadrants. EXTREMITIES: No clubbing, cyanosis, or edema. SKIN: Normal; no rash; no jaundice. OCCUPATIONAL HEALTH COORDINATOR: No focal deficits; alert and oriented times three. Assessment and Plan Plan feels ok, colon mass c/w cancer, Bx done I consulted Dr. Bass. await Bx result clear liquid CEA oncology consult Stephen Veronica MD Sep 28, 2016 08:53
[2016-09-28 09:21] VITALS: BP 140/72; PULSE 60; RESP 19; TEMP 95.6; O2SAT 94
--- NOTE | 2016-09-28 09:23 | MB ---
cc: JOSEFINA SHAH M.D. DATE OF CONSULTATION 09/28/[address] HISTORY OF PRESENT ILLNESS The patient is an 86-year-old white female who presented to the hospital with a two to three week history of abdominal pain. She states that with all eating she gets a diffuse crampy abdominal pain which does seem to be slightly worse on the right than on the left. She has a history of constipation and her primary care doctor had recommended prune juice and this seems to be effective for her. She denies any melena, hematochezia or change in the caliber of her stool. She denies any weight loss. She denies any family history of colorectal cancer or polyps. She has not had a previous colonoscopy. CT scan done on admission to the hospital revealed an apparent stricture in the ascending colon with an apple core type of lesion and some proximal dilatation. PAST MEDICAL HISTORY 1. Hypertension 2. Hyperlipidemia 3. Hypothyroidism PAST SURGICAL HISTORY None ALLERGIES None MEDICATIONS 1. Levothyroxine 2. Blood pressure medications 3. Cholesterol medications 4. Fish oil 5. B12 SOCIAL HISTORY The patient denies any tobacco or alcohol. FAMILY HISTORY As above. Shows no sign of colorectal cancer or polyps. REVIEW OF SYSTEMS Negative for chest pain, shortness of breath, difficulty with mood or mentation, difficulty with ambulation. She does have some dizziness, only when she is having pain. She denies any change in her vision or hearing. PHYSICAL EXAM This is an elderly female who appears comfortable. NEUROLOGIC: Grossly intact. SKIN: Warm and dry. HEAD: Normocephalic, atraumatic. CARDIAC: Regular rate. LUNGS: Breathing is symmetric bilaterally and nonlabored. ABDOMEN: Soft, nontender and nondistended. EXTREMITIES: Reveal no edema. LABORATORY DATA Laboratory work reveals a white count of 10.7, hemoglobin of 14.6 and platelets of 240. Chemistry reveals sodium 141, potassium 3.9, chloride of 107, bicarb is 26.8, BUN is 11, creatinine 0.55, glucose is 106. CEA is 12.4 and other tumor markers are within normal limits. CT SCAN There are also two possible areas of abnormality within the liver of concern for metastatic disease. These were located, the first one was in the left lobe measured 1.9 x 1.7. The second was in the upper right lobe measuring 1.4 x 1.4. 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 She is comfortable now with no further pain and the bowels seem to be moving with a laxative. She and I had a long discussion. The options are to move forward more urgently with surgery with the possibility of surgery on Saturday versus her going home and undergoing biopsy of the liver to ascertain if she does indeed have metastatic disease. Colonoscopy is planned for tomorrow with Dr. Naqvi. If she does truly have metastatic disease, the options would be to treat the metastatic disease and hold off on her primary resection. However, I do think because of the tightness of the stricture and the signs of some dilatation proximally, that is not the best option. I would suggest moving forward with surgery with plans for a robotic resection. After discussion with the patient, I did offer her the option of staying in the hospital over the weekend and going forward with surgery on Saturday, with a caveat that we would not have her biopsies back at that point. However, due to personal considerations, she would prefer to be discharged from the hospital and then see me in the office next week and at that point we will start getting her set up for surgery. Thank you very much for your kind referral. MD KATYA Robledo/EMILIE /8:51 AM /9:03 AM MAGO
--- NOTE | 2016-09-28 09:29 | MR ---
cc: STEPHEN VERONICA M.D. DATE 09/28/2016 DATE OF 1930 PROCEDURE Colonoscopy with biopsy ENDOSCOPIST Stephen Veronica MD MEDICATIONS Propofol administered by anesthesia. INSTRUMENT Pentax slim colonoscope INDICATION This is an 86-year-old lady who has constipation, abnormal CT scan. PROCEDURE After informing the patient about the procedure and complications, consent was signed. The patient was placed on her left lateral decubitus position. Adequate sedation was achieved by propofol. Rectal exam was performed. The scope was placed in the rectum, advanced under video guidance to the ascending colon where there was an apple core lesion near obstructing. I was not able to pass the scope through this stricturing area. Biopsy was done. This is consistent with cancer. The scope drawn back gradually with visualization of the colonic mucosa down to the rectum. Retroflexion was performed. Then the scope drawn back without any immediate complications. FINDINGS 1. Diverticular disease throughout the colon. 2. Apple core lesion in the mid ascending colon unable to pass the scope beyond this area consistent with malignancy, biopsy was done. RECOMMENDATIONS 1. CEA 2. Keep clear liquids. 3. Consult surgery. I asked Dr. Bass to see the patient. 4. Colonoscopy in one year. MD MEGAN German/EMILIE /9:11 AM /9:17 AM
[2016-09-28] MEDS: SODIUM CHLOR 0.9% 1000 ML INJ 1,000 ML IV SCH (11:35)
[2016-09-28 12:41] VITALS: BP 158/75; PULSE 55; RESP 19; TEMP 95.9; O2SAT 95
--- NOTE | 2016-09-28 14:02 | HHI.PR ---
Subjective Remarks Written by Chance Hale, acting as scribe for Dr. Leach on 09/28/16 at 13: 54. Patient is doing much better. She has undergone endoscopy. Pt states that she spoke w the surgeon and would prefer to be worked up as an outpatient. At the present time patient would prefer to go home and schedule outpatient appointments for further management of her condition at this time. Patient denies any further abdominal pain. She is tolerating liquid diet at this time. She is passing gas. Objective Vitals Vital Signs Date Time Temp Pulse Resp B/P Pulse Ox O2 Delivery O2 Flow Rate FiO2 09/28/16 12:41 95.9 55 19 158/75 95 09/28/16 09:25 68 16 122/65 95 09/28/16 09:21 95.6 60 19 140/72 94 09/28/16 09:10 52 16 122/62 100 09/28/16 08:55 97.1 60 16 96/63 98 09/28/16 07:55 97.9 63 16 121/60 93 09/28/16 00:00 97.9 57 18 127/75 93 09/27/16 20:00 97.2 59 20 137/76 95 09/27/16 19:47 94 21 09/27/16 16:53 97.7 56 19 127/69 94 I/O 09/27/16 09/27/16 09/27/16 09/28/16 09/28/16 09/28/16 07:00 15:00 23:00 07:00 15:00 23:00 Intake Total 500 ml 480 ml 1640 ml Output Total 300 ml Balance -300 ml 500 ml 480 ml 1640 ml Intake Oral 500 ml 480 ml 240 ml IV Total 1400 ml Output Urine Total 300 ml # Voids 2 3 2 # Bowel Movements 3 2 Result Diagram: 09/27/16 0533 09/27/1633 Imaging Last Impressions Chest X-Ray 09/26/162152 Signed Impressions: Service Date/Time: Monday, September 26, 2016 22:00 - CONCLUSION: The lungs are clear. Rico Chaudhary MD Abdomen/Pelvis CT 09/26/162152 Signed Impressions: Service Date/Time: Monday, September 26, 2016 22:59 - CONCLUSION: 1. Focal stricture with apple core like appearance in the mid ascending colon with dilatation, wall thickening and enhancement of the cecum. This is of concern for colon cancer. 2. Abnormal bowel gas pattern which could indicate an early or partial bowel obstruction with dilatation of the small bowel with air-fluid levels. 3. 2 low-attenuation lesions in the liver of concern for metastatic disease. 4. Parapelvic cysts in both kidneys. Gabriel Perales MD Head CT 09/26/16 0000 Signed Impressions: Service Date/Time: Monday, September 26, 2016 22:56 - CONCLUSION: Negative noncontrast CT. Gabriel Perales MD Objective Remarks GENERAL: Well-developed, well-nourished, in no acute distress. alert and orientated HEENT: Head is normocephalic without any lesions or masses noted. Facial features are symmetric. Eyes: Extraocular muscles are intact. Conjunctivae were clear. NECK: Supple without any masses. Trachea midline no deviation. CARDIAC: Regular rhythm, regular rate. No murmurs LUNGS: Clear to auscultation bilaterally. No wheeze. No use of accessory muscles on inspiration or expiration. ABDOMEN: Soft, nontender. Nondistended. Bowel sounds heard in all 4 quadrants. no guarding EXTREMITIES: No edema, pulses are equal bilaterally. NEUROLOGY: Mood and affect appear appropriate. Cranial nerves II through XII grossly intact. Moving all extremities, speech is clear Urinary Catheter: No Vascular Central Line Catheter: No A/P Assessment and Plan Abdominal pain with associated CT finding of apical core lesion in the ascending colon with partial small bowel obstruction Highly suspicious for malignancy CT scan does show apical core like appearing lesion in the mid ascending colon with dilatation, wall thickening and enhancement of the cecum. Also 2 low attenuation lesions in the liver concerning for metastatic disease. GI consultation was requested and patient had colonoscopy, after discussing with GI, he indicates that does look cancerous and recommended surgical intervention. GI indicated that the patient may be discharged home with clear to full liquid diet with outpatient follow-up Consulted colorectal specialist, who evaluated the patient and is also recommending surgical intervention. They recommending outpatient follow-up with her appointment to arrange surgery next week Consulted medical oncology, discussed with Dr. Griffith, who recommended that the patient will need continued follow-up on biopsy, possible PET scan to rule out malignancies secondary to the liver lesions in outpatient setting. He gave medical team his offices phone number in order to fax information over to their office and they'll make appointment to see her next week when more results are available CEA was elevated at 12.4, AFP, CA-19-9, CA-125 were all negative Discontinue IV fluids Continue pain control Clear /full liquid diet Hypertension, hyperlipidemia Continue home medications DVT prevention Sequential compression devices This note was transcribed by betsy Hale. I, Dr. Imelda Leach personally performed the history, physical exam, and medical decision making; and confirmed the accuracy of the information in the transcribed note. Authenticated by Dr. Imelda Leach on 09/28/16 at 13:54. Discharge Planning Discharge home in stable condition Activity: Ad deysi. Diet: Clear/full liquid diet Medication per medication reconciliation Follow-up primary medical doctor in one week, colorectal specialist early next week, medical/oncology next week, intelligence chief in 10 days Chance Hale Sep 28, 2016 14:02 Imelda Leach MD Sep 28, 2016 17:23
--- NOTE | 2016-09-28 14:03 | HHI.DCPOC ---
Discharge Care Plan Diagnosis: (1) Mass of colon (2) Partial small bowel obstruction Goals to Promote Your Health * To prevent worsening of your condition and complications * To maintain your health at the optimal level Directions to Meet Your Goals Take your medications as prescribed Follow your dietary instruction Follow activity as directed Keep your appointments as scheduled Take your immunizations and boosters as scheduled If your symptoms worsen call your PCP, if no PCP go to Urgent Care Center or Emergency Room Smoking is Dangerous to Your Health. Avoid second hand smoke Call the 24-hour hour crisis hotline for domestic abuse at Chance Hale Sep 28, 2016 14:03
[2016-09-28] MEDS ORDERED: MIRA3350 PO (14:44)
== END 2016-09-28 15:33 | disposition home or self-care (01) ==
LOC: PHED 21:18 → INTOOBSV 09-27 00:01 → PHEDA 09-27 00:01 → PH3A 09-27 00:59
PROVIDERS: ADMIT Hospitalist; ATTEND Hospitalist
PROC: 0DBN8ZZ Excision of Sigmoid Colon, Via Natural or Artificial Opening Endoscopic (ICD-10-PCS; principal; 2016-09-26)
DX: C18.7 Malignant neoplasm of sigmoid colon (principal); K56.60 Unspecified intestinal obstruction; K57.30 Diverticulosis of large intestine without perforation or abscess without bleeding; I10 Essential (primary) hypertension; E78.5 Hyperlipidemia, unspecified; E03.9 Hypothyroidism, unspecified; Z79.899 Other long term (current) drug therapy; R94.31 Abnormal electrocardiogram [ECG] [EKG]
CPT/HCPCS: 01922; 45380; 70450; 71010; 74177; 80048; 80053; 81001; 82105; 82378; 82550; 83605; 83690; 83735; 84484; 85025; 85610; 85730; 86301; 86304; 88305; 93005; 96361; 96374; 97162; 99285; G0378; G8987; G8988; J2405; J7030; Q9967

== ENCOUNTER 2016-10-10 06:14 | Day surgery (SDC) | payer OTHER ==
[2016-10-10] VITALS (9 sets, daily range): BP systolic 122–164; BP diastolic 64–83; PULSE 49–57; RESP 16–20; TEMP 97.7–97.8; O2SAT 91–96
[~2016-10-10] VITALS: Ht 165.1 cm; Wt 86.4 kg
[~2016-10-10 06:14] MED LIST: CYAN1TAB24 PO; FISH1000 PO; LEVO100T5 PO; MIRA3350 PO; NADO20TA PO; PRAV40TA2 PO; RAMI5CAP PO
[2016-10-10] MEDS ORDERED: SODIUM CHLOR 0.9% 1000 ML INJ 1,000 ML IV SCH (07:00)
[2016-10-10] MEDS ORDERED: LIDOCAINE HCL 1% 20 ML VIAL ONE (07:28)
[2016-10-10] MEDS ORDERED: SODIUM BICARBONATE 8.4% INJ 50 ML ONE (07:35)
[2016-10-10] MEDS ORDERED: MIDAZOLAM HCL 2 MG/2 ML VIAL ONE (07:55)
[2016-10-10] MEDS ORDERED: fentaNYL CITRATE 250 MCG/5 ML AMP ONE (07:56)
--- NOTE | 2016-10-10 10:40 | RADRPT ---
EXAM DATE/TIME: 10/10/2016 08:11 [place] COMPARISON: No previous studies available for comparison. INDICATIONS : Liver mass. SEDATION TIME: 30 minutes BIOPSY SITE: liver MEDICATION(S): 1.) 2 mg midazolam (Versed) IV 2.) 100 mcg fentanyl (Sublimaze) IV DEVICE(S): 1.) 18 gauge Sharma blunt needle 5cm 2.) 20 gauge Temno core biopsy needle 15cm MEDICAL HISTORY : None. SURGICAL HISTORY : None. ENCOUNTER: Initial ACUITY: 1 day PAIN SCORE: 0/10 LOCATION: anterior A total of two core specimen(s) were obtained and sent to the laboratory for pathologic evaluation. PROCEDURE: 1. CT guided liver biopsy. 2. Conscious sedation with continuous EKG and oximetry monitoring. Prior to the procedure informed consent was obtained. Any appropriate prior imaging studies were rev iewed. Using automated exposure control and adjustment of the mA and/or kV according to patient size, radiat ion dose was kept as low as reasonably achievable to obtain optimal diagnostic quality images. DICOM format image data is available electronically for review and comparison. The site was prepped in a sterile fashion. Full sterile technique was used, including cap, mask, saleem rile gloves and gown and a large sterile sheet. Hand hygiene and 2% chlorhexidine and/or betadine/al cohol prep was utilized per protocol for cutaneous antisepsis. The skin and subcutaneous tissues wer e infiltrated with local anesthetic solution. Under CT guidance an 18 gauge blunt was placed down to the lesion in the left lobe and 2 cores obtain ed. Follow-up CT scan reveals no hemorrhage. The patient tolerated the procedure well and there were no complications. The patient was returned to the Radiology Outpatient Unit in stable condition. CONCLUSION: Uncomplicated CT guided biopsy of mass left lobe of liver. Chilango Guerrero MD FACR on October 10, 2016 at 10:38 Board Certified Radiologist. This report was verified electronically.
== END 2016-10-10 12:30 | disposition home or self-care (01) ==
LOC: HRAD 06:14 → HRIP 06:36 → HRAD 12:30
PROVIDERS: ATTEND Colon & Rectal Surgery
DX: C78.7 Secondary malignant neoplasm of liver and intrahepatic bile duct (principal); C18.2 Malignant neoplasm of ascending colon
CPT/HCPCS: 47000; 77012; 88307; J2250; J3010; J7030

== ENCOUNTER 2016-10-26 11:00 | Inpatient (IN) | payer OTHER, MEDICARE ==
[~2016-10-26] VITALS: Ht 165.1 cm; Wt 90.2 kg
[2016-10-26] MEDS ORDERED: CHLORHEXIDINE GLUCONATE 2 % 1 PACK (2 CLOTHS) TOPICAL PRN (11:30)
[2016-10-26] MEDS ORDERED: SODIUM CHLORID 0.9% 500 ML IV PRN (11:30)
[2016-10-26] MEDS ORDERED: POVIDONE IODINE 5% (ANTISEPSIS KIT) 4 APPLICATIONS EACH NARE PRN (11:30)
[2016-10-26] MEDS ORDERED: LACTATED RINGER'S 1000 ML IV PRN (11:30)
[2016-10-26] MEDS ORDERED: DEXT 5%-NACL 0.9% 1000 ML INJ 1,000 ML IV SCH (11:30)
[2016-10-26] MEDS ORDERED: METOPROLOL TARTRATE 25 MG TAB PO PRN (11:30)
[2016-10-26] MEDS ORDERED: INSULIN HUMAN REGULAR 1,000 UNITS/10 ML VIAL SQ PRN (11:30)
[2016-10-26] MEDS ORDERED: LIDOCAINE HCL 1% PF 5 ML AMPULE OTHER ONE (12:00)
[2016-10-26] MEDS ORDERED: ceFAZolin 2 GM PREMIX 50 ML IV SCH (12:00)
[2016-10-26] MEDS ORDERED: VECURONIUM BROMIDE 10 MG VIAL IV ONE (12:00)
[2016-10-26] MEDS ORDERED: LACTATED RINGER'S 1000 ML INJ 1,000 ML IV ONE (12:00)
[2016-10-26] MEDS ORDERED: DEXAMETHASONE SOD PHOS 4 MG/ML VIAL IV ONE (12:00)
[2016-10-26] MEDS ORDERED: PHENYLEPH/NS 1000 MCG/10 ML SYR IV ONE (12:00)
[2016-10-26] MEDS ORDERED: PROPOFOL 200 MG/20 ML AMP IV ONE (12:00)
[2016-10-26] MEDS ORDERED: ONDANSETRON HCL 4 MG/2 ML VIAL IV PUSH ONE (12:00)
[2016-10-26] MEDS ORDERED: ePHEDrine/NS 25 MG/5 ML SYR IV ONE (12:00)
[2016-10-26] MEDS ORDERED: METRONIDAZOLE 500 MG/100 ML ISONTONIC SOLN IV SCH (12:00)
--- NOTE | 2016-10-26 12:36 | PD.HP.UP ---
H&P Update Note The Pre-Admit History and Physical Examination regarding the above named patient was reviewed (including, but not limited to, vital signs, heart, lungs, co-morbid conditions), and upon re-examination it is noted that: the patient's condition has not significantly changed since the last examination. Laurence Teixeira MD Oct 26, 2016 12:36
[2016-10-26] MEDS ORDERED: FAMOTIDINE 20 MG/2 ML VIAL ONE (13:34)
[2016-10-26] MEDS ORDERED: SUGAMMADEX SODIUM 200 MG/2 ML VIAL IV PUSH ONE ×2 (17:03)
[2016-10-26] MEDS ORDERED: ACETAMINOPHEN 1000 MG/100 ML 100 ML IV ONE (17:03)
[2016-10-26] MEDS ORDERED: MIDAZOLAM HCL 2 MG/2 ML VIAL ONE (17:07)
[2016-10-26] MEDS ORDERED: NALOXONE HCL 0.4 MG/ML AMP IV PRN (18:15)
[2016-10-26] MEDS ORDERED: ONDANSETRON HCL 4 MG/2 ML VIAL IV PRN (18:15)
[2016-10-26] MEDS ORDERED: POTASSIUM CHLOR 10 MEQ PREMIX 100 ML IV PRN (18:15)
[2016-10-26] MEDS ORDERED: ENALAPRILAT 1.25 MG/ML VIAL IV PRN (18:15)
[2016-10-26] MEDS ORDERED: MORPHINE SULFATE 30 MG/30 ML PCA IV SCH (18:15)
[2016-10-26] MEDS ORDERED: ENALAPRILAT 2.5 MG/2 ML VIAL IV PRN (18:15)
[2016-10-26] MEDS ORDERED: ACETAMINOPHEN/HYDROcodone 325 MG/5 MG TAB PO PRN ×2 (18:15)
[2016-10-26] MEDS ORDERED: Post-op Orders (for Pharmacy) MISC XX ONE (18:15)
[2016-10-26] MEDS ORDERED: SODIUM CHLORIDE 0.9% FLUSH 5 ML FLUSH IVF PRN (18:15)
[2016-10-26] MEDS ORDERED: POTASSIUM CHLOR 20 MEQ PREMIX 100 ML IV PRN ×2 (18:15→19:15)
[2016-10-26] MEDS ORDERED: ACETAMINOPHEN 325 MG TAB PO PRN (18:15)
[2016-10-26] MEDS ORDERED: BENZOCAINE 6 MG/MENTHOL 10 MG LOZENGE BUCCAL PRN (18:15)
[2016-10-26] MEDS ORDERED: DO NOT ADM ANY ANTICOAGULANT DRUGS PRN (18:25)
[2016-10-26] MEDS ORDERED: *ONDANSETRON 4 MG VIAL PERIprocedural Use ONLY ONE (18:50)
[2016-10-26 19:06] LABS: BASOPHIL % 0.3 % (0.0-2.0); EOSINOPHIL % 0.2 % (0.0-4.0); HEMATOCRIT 34.8 % (35.0-46.0); HEMO FLAGS DIFF FINAL; LYMPH % 12.2 % (9.0-44.0); LYMPHOCYTE # 1.3 TH/MM3 (1.0-4.8); MEAN CELL VOLUME 91.1 FL (80.0-100.0); MEAN CORPUSCULAR HEMOGLOBIN 31.3 PG (27.0-34.0); MEAN CORPUSCULAR HGB CONC 34.4 % (32.0-36.0); MONO % 3.5 % (0.0-8.0); NEUT % 83.8 % (16.0-70.0); PLATELET COUNT 155 TH/MM3 (150-450); RED BLOOD COUNT 3.82 MIL/MM3 (4.00-5.30); WHITE BLOOD COUNT 10.7 TH/MM3 (4.0-11.0)
[2016-10-26] MEDS: D5-NS + KCL 20 MEQ INJ 1,000 ML IV SCH (19:12)
[2016-10-26 19:26] LABS: BICARBONATE 24.6 MEQ/L (21.0-32.0); POTASSIUM 3.2 MEQ/L (3.5-5.1)
[2016-10-26 20:00] VITALS: BP 153/78; PULSE 63; RESP 18; TEMP 98.6; O2SAT 97
[2016-10-26 21:00] VITALS: PULSE 60
[2016-10-26] MEDS: SODIUM CHLORIDE 0.9% FLUSH 5 ML FLUSH IVF SCH (21:00)
[2016-10-26] MEDS: KETOROLAC TROMETHAMINE 30 MG/ML (IVP) VIAL IVP SCH (21:09)
[2016-10-26] MEDS: PCA - TOTAL MG MORPHINE DELIVERED PER SHIFT SCH (21:09)
[2016-10-26] MEDS: metroNIDAZOLE 500 MG INJ 100 ML IV SCH (21:09)
[2016-10-26] MEDS: diphenhydrAMINE HCL 50 MG/ML VIAL IV PRN (21:14)
[2016-10-26 22:00] VITALS: PULSE 57
[2016-10-26 23:00] VITALS: PULSE 59
[2016-10-26 23:36] VITALS: BP 128/62; PULSE 55; RESP 18; TEMP 98.2; O2SAT 97
[2016-10-27] VITALS (20 sets, daily range): BP systolic 104–135; BP diastolic 52–69; PULSE 46–94; RESP 16–18; TEMP 98.3–98.6; O2SAT 95–99
[2016-10-27] MEDS: KETOROLAC TROMETHAMINE 30 MG/ML (IVP) VIAL IVP SCH ×4 (01:36→20:39)
[2016-10-27] MEDS: D5-NS + KCL 20 MEQ INJ 1,000 ML IV SCH ×4 (01:38→16:29)
[2016-10-27 05:42] LABS: AUTOMATED NEUTROPHIL # 8.7 TH/MM3 (1.8-7.7); BASOPHIL % 0.1 % (0.0-2.0); HEMATOCRIT 32.7 % (35.0-46.0); HEMO FLAGS DIFF FINAL; LYMPH % 13.7 % (9.0-44.0); LYMPHOCYTE # 1.5 TH/MM3 (1.0-4.8); MEAN CELL VOLUME 91.3 FL (80.0-100.0); MEAN CORPUSCULAR HEMOGLOBIN 31.8 PG (27.0-34.0); MEAN CORPUSCULAR HGB CONC 34.8 % (32.0-36.0); MONO % 5.3 % (0.0-8.0); NEUT % 80.9 % (16.0-70.0); PLATELET COUNT 146 TH/MM3 (150-450); RED BLOOD COUNT 3.58 MIL/MM3 (4.00-5.30); RED CELL DISTRIBUTION WIDTH 13.9 % (11.6-17.2); WHITE BLOOD COUNT 10.8 TH/MM3 (4.0-11.0)
[2016-10-27] MEDS: PCA - TOTAL MG MORPHINE DELIVERED PER SHIFT SCH ×3 (05:53→20:39)
[2016-10-27] MEDS: LEVOTHYROXINE SODIUM 100 MCG TAB PO SCH (05:53)
[2016-10-27] MEDS: metroNIDAZOLE 500 MG INJ 100 ML IV SCH ×2 (05:53→13:10)
[2016-10-27 06:10] LABS: BICARBONATE 25.4 MEQ/L (21.0-32.0); POTASSIUM 3.5 MEQ/L (3.5-5.1)
[2016-10-27] MEDS: PANTOPRAZOLE SODIUM 40 MG VIAL IVP SCH (08:27)
[2016-10-27] MEDS: SODIUM CHLORIDE 0.9% FLUSH 5 ML FLUSH IVF SCH ×2 (08:27→20:39)
[2016-10-27] MEDS: RAMIPRIL 5 MG CAP PO SCH (08:35)
[2016-10-27] MEDS: NADOLOL 20 MG TAB PO SCH (08:35)
--- NOTE | 2016-10-27 15:11 | HHI.PR ---
Subjective Remarks POD#1 s/p robotic ascending colectomy comfortable Objective Vital Signs Date Time Temp Pulse Resp B/P (MAP) Pulse Ox O2 Delivery O2 Flow Rate FiO2 10/27/16 14:11 16 10/27/16 13:10 16 10/27/16 12:00 57 10/27/16 12:00 98.4 55 16 107/57 (74) 95 10/27/16 11:00 50 10/27/16 10:00 50 10/27/16 09:00 48 10/27/16 08:00 98.6 64 16 118/59 (78) 96 10/27/16 08:00 49 10/27/16 07:00 52 10/27/16 06:00 52 10/27/16 05:53 18 10/27/16 05:00 51 10/27/16 04:00 98.3 49 18 104/52 (69) 96 10/27/16 04:00 49 10/27/16 03:00 52 10/27/16 02:00 50 10/27/16 01:40 98 Nasal Cannula 3.00 10/27/16 01:00 52 10/27/16 00:00 55 10/26/16 23:36 98.2 55 18 128/62 (84) 97 10/26/16 23:00 59 10/26/16 22:00 57 10/26/16 21:09 20 10/26/16 21:00 60 10/26/16 20:00 98.6 63 18 153/78 (103) 97 10/26/16 20:00 63 10/26/16 19:40 56 16 114/54 (74) 96 Nasal Cannula 2 10/26/16 19:15 55 16 109/54 (72) 96 Nasal Cannula 2 10/26/16 19:15 19 10/26/16 19:00 62 19 107/53 (71) 94 Nasal Cannula 2 10/26/16 18:45 60 14 111/57 (75) 94 Nasal Cannula 2 10/26/16 18:30 68 18 121/60 (80) 94 Nasal Cannula 4 10/26/16 18:29 97.6 67 18 115/56 (75) 96 Simple Mask 10 I/O 10/26/16 10/26/16 10/26/16 10/27/16 10/27/16 10/27/16 07:00 15:00 23:00 07:00 15:00 23:00 Intake Total 2700 ml 3259 ml 1200 ml Output Total 500 ml 680 ml Balance 2200 ml 2579 ml 1200 ml Intake Oral 50 ml IV Total 3209 ml 1200 ml Other 2700 ml Output Urine Total 500 ml 680 ml # Bowel Movements 0 Result Diagram: 10/27/16 0527 10/27/16 0527 Objective Remarks Abdomen soft, nondistended, tender Dressings c/d/i Assessment and Plan Assessment and Plan Doing well Decrease IVF Mobilize Advance diet D/C Laurence Rothman MD Oct 27, 2016 15:11
[2016-10-27] MEDS: HEPARIN SODIUM - SQ 10,000 UNITS/ML VIAL SQ SCH (16:29)
[2016-10-28] VITALS: BP 135/72; PULSE 70; RESP 18; TEMP 98.7; O2SAT 96
[2016-10-28] MEDS: diphenhydrAMINE HCL 50 MG/ML VIAL IV PRN (02:59)
[2016-10-28] MEDS: KETOROLAC TROMETHAMINE 30 MG/ML (IVP) VIAL IVP SCH ×4 (03:00→20:30)
[2016-10-28 04:00] VITALS: BP 147/82; PULSE 72; RESP 18; TEMP 98.5; O2SAT 96
[2016-10-28] MEDS: HEPARIN SODIUM - SQ 10,000 UNITS/ML VIAL SQ SCH ×2 (04:26→16:09)
[2016-10-28] MEDS: PCA - TOTAL MG MORPHINE DELIVERED PER SHIFT SCH (05:34)
[2016-10-28] MEDS: LEVOTHYROXINE SODIUM 100 MCG TAB PO SCH (05:35)
[2016-10-28 08:00] VITALS: BP 151/77; PULSE 61; RESP 18; TEMP 98.6; O2SAT 95
[2016-10-28 08:01] LABS: AUTOMATED NEUTROPHIL # 4.8 TH/MM3 (1.8-7.7); BASOPHIL % 0.6 % (0.0-2.0); EOSINOPHIL # 0.1 TH/MM3 (0-0.4); EOSINOPHIL % 1.8 % (0.0-4.0); HEMATOCRIT 30.2 % (35.0-46.0); HEMO FLAGS DIFF FINAL; LYMPH % 30.4 % (9.0-44.0); LYMPHOCYTE # 2.4 TH/MM3 (1.0-4.8); MEAN CELL VOLUME 91.4 FL (80.0-100.0); MEAN CORPUSCULAR HEMOGLOBIN 32.2 PG (27.0-34.0); MEAN CORPUSCULAR HGB CONC 35.3 % (32.0-36.0); MONO % 7.8 % (0.0-8.0); NEUT % 59.4 % (16.0-70.0); PLATELET COUNT 126 TH/MM3 (150-450); RED BLOOD COUNT 3.31 MIL/MM3 (4.00-5.30); WHITE BLOOD COUNT 8.1 TH/MM3 (4.0-11.0)
[2016-10-28] MEDS: NADOLOL 20 MG TAB PO SCH (08:36)
[2016-10-28] MEDS: RAMIPRIL 5 MG CAP PO SCH (08:36)
[2016-10-28] MEDS: SODIUM CHLORIDE 0.9% FLUSH 5 ML FLUSH IVF SCH ×2 (08:37→20:30)
[2016-10-28] MEDS: PANTOPRAZOLE SODIUM 40 MG VIAL IVP SCH (08:37)
[2016-10-28 08:42] LABS: BICARBONATE 24.5 MEQ/L (21.0-32.0); POTASSIUM 3.4 MEQ/L (3.5-5.1)
[2016-10-28] MEDS: D5-NS + KCL 20 MEQ INJ 1,000 ML IV SCH (09:10)
[2016-10-28 12:00] VITALS: BP 125/75; PULSE 50; RESP 18; TEMP 98.4; O2SAT 95
--- NOTE | 2016-10-28 12:25 | HHI.PR ---
Subjective Remarks POD#2 s/p robotic ascending colectomy comfortable Objective Vital Signs Date Time Temp Pulse Resp B/P (MAP) Pulse Ox O2 Delivery O2 Flow Rate FiO2 10/28/16 12:00 98.4 50 18 125/75 (92) 95 10/28/16 09:10 16 10/28/16 08:00 98.6 61 18 151/77 (101) 95 10/28/16 05:34 18 10/28/16 04:00 98.5 72 18 147/82 (103) 96 10/28/16 00:00 98.7 70 18 135/72 (93) 96 10/27/16 20:39 20 10/27/16 20:00 98.3 69 18 135/69 (91) 97 10/27/16 17:35 99 21 10/27/16 16:00 52 10/27/16 16:00 98.6 58 16 125/62 (83) 96 10/27/16 15:00 48 10/27/16 14:00 46 10/27/16 13:10 16 10/27/16 13:00 48 I/O 10/27/16 10/27/16 10/27/16 10/28/16 10/28/16 10/28/16 07:00 15:00 23:00 07:00 15:00 23:00 Intake Total 3259 ml 1200 ml 2435 ml 1080 ml Output Total 680 ml 800 ml 800 ml Balance 2579 ml 1200 ml 1635 ml 280 ml Intake Oral 50 ml 1260 ml 480 ml IV Total 3209 ml 1200 ml 1175 ml 600 ml Output Urine Total 680 ml 800 ml 800 ml # Bowel Movements 0 0 0 Result Diagram: 10/28/16 0749 10/28/16 0749 Objective Remarks Abdomen soft, nondistended, tender wounds clean Assessment and Plan Assessment and Plan Doing well Decrease IVF Mobilize Advance diet Transfer to 7 N Discharge planning Laurence Teixeira MD Oct 28, 2016 12:25
[2016-10-28 16:00] VITALS: BP 118/67; PULSE 57; RESP 18; TEMP 98.2; O2SAT 93
[2016-10-28 20:00] VITALS: BP 133/69; PULSE 72; RESP 18; TEMP 98.5; O2SAT 96
[2016-10-29] VITALS: BP 149/69; PULSE 56; RESP 18; TEMP 96.4; O2SAT 94
[2016-10-29] MEDS: KETOROLAC TROMETHAMINE 30 MG/ML (IVP) VIAL IVP SCH ×2 (03:00→09:06)
[2016-10-29 04:00] VITALS: BP 166/74; PULSE 60; RESP 18; TEMP 97.1; O2SAT 94
[2016-10-29 05:07] LABS: AUTOMATED NEUTROPHIL # 3.6 TH/MM3 (1.8-7.7); BASOPHIL % 0.7 % (0.0-2.0); EOSINOPHIL # 0.2 TH/MM3 (0-0.4); HEMATOCRIT 29.6 % (35.0-46.0); HEMO FLAGS DIFF FINAL; LYMPH % 35.9 % (9.0-44.0); LYMPHOCYTE # 2.4 TH/MM3 (1.0-4.8); MEAN CORPUSCULAR HEMOGLOBIN 31.4 PG (27.0-34.0); MEAN CORPUSCULAR HGB CONC 34.2 % (32.0-36.0); MONO % 6.9 % (0.0-8.0); NEUT % 53.5 % (16.0-70.0); PLATELET COUNT 137 TH/MM3 (150-450); RED BLOOD COUNT 3.22 MIL/MM3 (4.00-5.30); RED CELL DISTRIBUTION WIDTH 14.3 % (11.6-17.2); WHITE BLOOD COUNT 6.8 TH/MM3 (4.0-11.0)
[2016-10-29 05:29] LABS: BICARBONATE 23.4 MEQ/L (21.0-32.0); POTASSIUM 3.6 MEQ/L (3.5-5.1)
[2016-10-29] MEDS: HEPARIN SODIUM - SQ 10,000 UNITS/ML VIAL SQ SCH ×2 (05:42→16:35)
[2016-10-29] MEDS: LEVOTHYROXINE SODIUM 100 MCG TAB PO SCH (05:43)
[2016-10-29 08:00] VITALS: BP 132/66; PULSE 56; RESP 16; TEMP 95.8; O2SAT 94
[2016-10-29] MEDS: SODIUM CHLORIDE 0.9% FLUSH 5 ML FLUSH IVF SCH ×2 (09:00→21:00)
[2016-10-29] MEDS: RAMIPRIL 5 MG CAP PO SCH (09:06)
[2016-10-29] MEDS: PANTOPRAZOLE SODIUM 40 MG VIAL IVP SCH (09:06)
[2016-10-29] MEDS: D5-NS + KCL 20 MEQ INJ 1,000 ML IV SCH (09:09)
[2016-10-29] MEDS: NADOLOL 20 MG TAB PO SCH (10:29)
--- NOTE | 2016-10-29 11:19 | MP ---
cc: JOSEFINA SHAH M.D., JON C. M.D. DATE OF SURGERY October 26, 2016 PREOPERATIVE DIAGNOSIS Ascending colon cancer. POSTOPERATIVE DIAGNOSIS Ascending colon cancer. PROCEDURE Robotic ascending colectomy. SURGEON MD Puneet PIECE CUTTER Froylan. ANESTHESIA General per ET tube ESTIMATED BLOOD LOSS 100 cc. OPERATIVE INDICATIONS The patient is an 86-year-old female with a partially obstructing ascending colon cancer, with known liver metastasis. OPERATIVE FINDINGS The patient had a moderate sized near-obstructing tumor in the proximal ascending colon. I was not able to visualize the liver metastases. The gallbladder appeared normal. The uterus was absent. The right tube and ovary were visualized and appeared normal. I was not able to visualize the left tube and ovary. OPERATIVE COURSE The patient was brought to the operating room and placed in the supine position. After induction of general anesthesia, the bed was broken slightly and the skin of the anterior abdominal wall, as well as the perineal area, was then prepped and draped in the usual sterile fashion. A site was then chosen for the camera, located 2 cm below and to the left of the umbilicus. A 10/12 port was placed at that location, under direct vision using the laparoscope. CO2 insufflation was undertaken and a brief abdominal survey was performed. There was nothing noted that would preclude the abdominal approach. The remainder of the trocars were placed as described. The #1, which was an 8 da Celi port, was placed just under the left costal margin. The #5 assist port was placed in the left midclavicular line an equal distance between the #1 and the camera port. The #2 port was placed just to the right of the planned suprapubic incision, and the #3 port, which was a 10/12 stapler port, was placed just inside the right anterior superior iliac spine. The patient was hydroplaned with head down and slightly to the right, and the omentum was brought up-and-over the transverse colon. There were some adhesions of omentum to the ascending colon which were carefully dissected free using electrocautery. The small bowel was then brought up and out of the pelvis and the robot was docked. The mesentery was scored just underneath the cecum and, proceeding to the midline dissection continued in this plane carefully dissecting the right ureter away from the specimen, and dissecting underneath the ascending colon mesentery up to level of the duodenum. The duodenum was then carefully dissected free from the undersurface of the transverse mesocolon. Dissection continued in this plane both laterally and superiorly until we had good mobility of the ascending colon and transverse mesocolon. The small bowel was then returned to its more ordinary position and gentle tension was placed on the ileocecal area, retracting it down and to the right. This allowed for easy visualization of the ileocolic vessels. A window was made around the ileocolic vessels and then these were dissected out circumferentially, just distal to their takeoff. These were doubly clamped proximally and distally, using Hem-o-aram clamps, and divided. Dissection then continued up and around the lateral attachments of the ascending colon, up to level of the hepatic flexure but not around it. The omentum was then gently pulled away from the transverse colon and dissection was continued in this plane until the lesser sac was entered. The omentum was dissected free from the transverse colon from the right side all way almost to the splenic flexure. At this point the transverse colon was retracted down in a caudal direction and the middle colic vessels were clearly visualized. A window was made in the mesentery just to the right of the middle colic vessels. One small branch of the vessels was divided using the ROSY stapler. The remainder of the dissection of the hepatic flexure was then continued using the vessel sealer up and around the hepatic flexure, meeting our previous dissection. At this point we had full mobility of the terminal ileum, ascending colon and proximal transverse colon. A site was chosen for division of the transverse colon, just to the right of the middle colic vessels. The mesentery at this level was serially divided using the vessel sealer. A site was chosen for division of the terminal ileum, approximately 12 cm proximal to the ileocecal valve. The mesentery at this level was divided, also using the vessel sealer. The small bowel was reversed and brought up to lay against the transverse colon and a site was chosen for the planned anastomosis. Using 2-0 silk suture, three stay sutures were placed, one on either side of the tinea of the colon to the small bowel and one approximately 8 cm distally. This lined up the bowel nicely for anastomosis. An opening was made in the bowel, proximal to the proposed anastomosis. The Drumright endostapler was brought onto the field, and one limb of the stapler was placed down each limb of the bowel. This was closed along the antimesenteric border, held for 30 seconds, fired, and removed; thus creating an enteroenterotomy. A reload of the Drumright endostapler was placed across the bowel, perpendicular and proximal to the anastomosis but distal to the previous enterotomies. This was closed, held for 30 seconds, fired, and removed. A second load was necessary to transect the bowel. The anastomosis was visualized and appeared widely patent and healthy. The stay suture, however, was somewhat distal so I did place a repeat stay suture closer to the anastomosis, of 2-0 silk suture. The anastomosis lay in a nice position without tension on the anastomosis. A specimen bag was then placed through the #3 port into the peritoneal cavity, and the specimen was placed into the bag and the bag was secured. All dissection beds were examined and suctioned out. The omentum was brought down to lay over the anterior surface of the anastomosis and the robot was undocked. An 8-10 cm incision was made in the suprapubic area. Using electrocautery, dissection was carried down to the fascia of the anterior abdominal wall, which was split the length of the skin incision. The medial fibers of the rectus abdominis muscle were then divided using electrocautery, and the posterior fascia/peritoneum was divided as well. The specimen was then retrieved in the specimen bag and taken to the back table where it was later opened and a near-obstructing ascending colon cancer was confirmed. All dissection beds were examined and appeared clear. The posterior fascia was closed in running fashion using #1 PDS and the anterior fascia was closed in a running fashion using #1 PDS. Tegaderm was placed over the incision and CO2 insufflation was resumed. The two #10/12 trocar sites, one in the umbilicus and one in the right lower quadrant, were then closed using the Crossbow device and 0 Vicryl suture. These were placed but not tied until the air was desufflated to the extent possible. These were then tied. All wounds were copiously irrigated with warm normal saline. The skin of the suprapubic incision was closed in a running subcuticular fashion, using 3-0 Vicryl, and the trocar sites were closed in an interrupted subcuticular fashion, using 3-0 Vicryl. Steri-Strips and sterile dressings were then applied. All sponge, needle and instrument counts were correct and the patient was returned to the Post-Anesthesia Care Unit in stable condition. MD KATYA Robledo/SSB /6:17 PM /10:50 AM MTDAdelso
[2016-10-29 12:00] VITALS: BP 164/78; PULSE 58; RESP 23; TEMP 97.2; O2SAT 95
--- NOTE | 2016-10-29 12:36 | HHI.PR ---
Subjective Remarks POD#3 s/p robotic ascending colectomy comfortable Objective Vital Signs Date Time Temp Pulse Resp B/P (MAP) Pulse Ox O2 Delivery O2 Flow Rate FiO2 10/29/16 08:00 95.8 56 16 132/66 (88) 94 10/29/16 04:00 97.1 60 18 166/74 (104) 94 10/29/16 00:00 96.4 56 18 149/69 (95) 94 10/28/16 20:00 98.5 72 18 133/69 (90) 96 10/28/16 16:00 98.2 57 18 118/67 (84) 93 10/28/16 15:18 16 I/O 10/28/16 10/28/16 10/28/16 10/29/16 10/29/16 10/29/16 06:59 14:59 22:59 06:59 14:59 22:59 Intake Total 1080 ml 240 ml Output Total 800 ml 50 ml Balance 280 ml 190 ml Intake Oral 480 ml 240 ml IV Total 600 ml Output Urine Total 800 ml 50 ml # Voids 1 # Bowel Movements 0 0 Result Diagram: 10/29/16 0347 10/29/16346 Objective Remarks Abdomen soft, nondistended, tender wounds clean Assessment and Plan Assessment and Plan Doing well Advance diet HL IV Discharge planning - will need inpatient rehab Laurence Teixeira MD Oct 29, 2016 12:36
[2016-10-29 16:00] VITALS: BP 150/70; PULSE 53; RESP 16; TEMP 97.4; O2SAT 96
[2016-10-29 20:00] VITALS: BP 174/81; PULSE 62; RESP 17; TEMP 95.2; O2SAT 96
[2016-10-30] VITALS: BP 130/76; PULSE 61; RESP 17; TEMP 96; O2SAT 97
[2016-10-30] MEDS: HEPARIN SODIUM - SQ 10,000 UNITS/ML VIAL SQ SCH ×2 (04:24→17:00)
[2016-10-30] MEDS: LEVOTHYROXINE SODIUM 100 MCG TAB PO SCH (05:58)
[2016-10-30 07:55] VITALS: BP 180/80; PULSE 60; RESP 18; TEMP 96.9; O2SAT 95
[2016-10-30] MEDS: SODIUM CHLORIDE 0.9% FLUSH 5 ML FLUSH IVF SCH ×2 (09:00→21:00)
[2016-10-30] MEDS: PANTOPRAZOLE SODIUM 40 MG VIAL IVP SCH (09:32)
[2016-10-30] MEDS: RAMIPRIL 5 MG CAP PO SCH (09:32)
[2016-10-30] MEDS: NADOLOL 20 MG TAB PO SCH (09:32)
--- NOTE | 2016-10-30 09:33 | HHI.PR ---
Subjective Remarks POD#4 s/p robotic ascending colectomy comfortable Objective Vital Signs Date Time Temp Pulse Resp B/P (MAP) Pulse Ox O2 Delivery O2 Flow Rate FiO2 10/30/16 07:55 96.9 60 18 180/80 (113) 95 10/30/16 00:00 96.0 61 17 130/76 (94) 97 10/29/16 20:00 95.2 62 17 174/81 (112) 96 10/29/16 16:00 97.4 53 16 150/70 (96) 96 10/29/16 12:00 97.2 58 23 164/78 (106) 95 I/O 10/29/16 10/29/16 10/29/16 10/30/16 10/30/16 10/30/16 06:59 14:59 22:59 06:59 14:59 22:59 Intake Total 240 ml 480 ml 240 ml 120 ml Output Total 50 ml Balance 190 ml 480 ml 240 ml 120 ml Intake Oral 240 ml 480 ml 240 ml 120 ml IV Total 0 ml 0 ml Output Urine Total 50 ml # Voids 1 4 2 # Bowel Movements 0 2 Result Diagram: 10/29/16 0347 10/29/16346 Objective Remarks Abdomen soft, nondistended, tender wounds clean Assessment and Plan Assessment and Plan Doing well Ready for transfer to [facility] when available Laurence Teixeira MD Oct 30, 2016 09:33
[2016-10-30] MEDS ORDERED: HYDR-3516 PO (09:34)
[2016-10-30 12:00] VITALS: BP 173/77; PULSE 51; RESP 17; TEMP 96.9; O2SAT 96
[2016-10-30 13:56] VITALS: O2SAT 95
[2016-10-30 16:00] VITALS: BP 172/74; PULSE 57; RESP 18; TEMP 96.9; O2SAT 97
[2016-10-30 20:00] VITALS: BP 166/77; PULSE 61; RESP 17; TEMP 98; O2SAT 96
[2016-10-31] VITALS (7 sets, daily range): BP systolic 131–184; BP diastolic 68–82; PULSE 54–60; RESP 17–20; TEMP 96.7–98.2; O2SAT 95–96
[2016-10-31] MEDS: LEVOTHYROXINE SODIUM 100 MCG TAB PO SCH (05:33)
[2016-10-31] MEDS: HEPARIN SODIUM - SQ 10,000 UNITS/ML VIAL SQ SCH ×2 (05:33→17:08)
[2016-10-31] MEDS: SODIUM CHLORIDE 0.9% FLUSH 5 ML FLUSH IVF SCH (09:00)
[2016-10-31] MEDS: RAMIPRIL 5 MG CAP PO SCH (10:00)
[2016-10-31] MEDS: NADOLOL 20 MG TAB PO SCH (10:01)
[2016-10-31] MEDS: PANTOPRAZOLE SODIUM 40 MG VIAL IVP SCH (10:01)
[2016-11-01] MEDS: HEPARIN SODIUM - SQ 10,000 UNITS/ML VIAL SQ SCH ×2 (05:24→16:52)
[2016-11-01] MEDS: LEVOTHYROXINE SODIUM 100 MCG TAB PO SCH (05:24)
[2016-11-01 08:00] VITALS: BP 188/83; PULSE 57; RESP 16; TEMP 98.7; O2SAT 93
[2016-11-01] MEDS: SODIUM CHLORIDE 0.9% FLUSH 5 ML FLUSH IVF SCH (09:00)
[2016-11-01] MEDS: RAMIPRIL 5 MG CAP PO SCH (09:08)
[2016-11-01] MEDS: NADOLOL 20 MG TAB PO SCH (09:08)
[2016-11-01] MEDS: PANTOPRAZOLE SODIUM 40 MG VIAL IVP SCH (09:09)
--- NOTE | 2016-11-01 10:21 | HHI.PR ---
Subjective Remarks POD#7 s/p robotic ascending colectomy comfortable Objective Vital Signs Date Time Temp Pulse Resp B/P (MAP) Pulse Ox O2 Delivery O2 Flow Rate FiO2 10/31/16 23:18 96.7 55 18 163/74 (103) 96 10/31/16 20:00 98.2 57 18 164/74 (104) 95 10/31/16 16:00 96.9 60 19 171/81 (111) 96 10/31/16 12:00 96.9 54 20 184/81 (115) 95 10/31/16 10:55 95 I/O 10/31/16 10/31/16 10/31/16 11/01/16 11/01/16 11/01/16 07:00 15:00 23:00 07:00 15:00 23:00 Intake Total 240 ml 120 ml 960 ml 480 ml Output Total 1200 ml 1010 ml Balance 240 ml 120 ml -240 ml -530 ml Intake Oral 240 ml 120 ml 960 ml 480 ml IV Total 0 ml 0 ml Output Urine Total 1200 ml 1010 ml # Voids 2 # Bowel Movements 0 0 Result Diagram: 10/29/16 0347 10/29/16 0347 Objective Remarks Abdomen soft, nondistended, tender wounds clean Assessment and Plan Assessment and Plan Doing well Ready for transfer to [facility] when available Laurence Teixeira MD Nov 01, 2016 10:21
[2016-11-01 12:00] VITALS: BP 156/72; PULSE 56; RESP 16; TEMP 97.8; O2SAT 93
[2016-11-01 16:00] VITALS: BP 182/77; PULSE 56; RESP 16; TEMP 97.7; O2SAT 94
--- NOTE | 2016-11-20 22:50 | MD ---
cc: JOSEFINA SHAH M.D. ADMISSION DATE: 10/26/2016 DISCHARGE DATE: 11/01/2016 ADMISSION DIAGNOSIS Ascending colon cancer. DISCHARGE DIAGNOSIS Ascending colon cancer. PROCEDURE Robotic ascending colectomy. HOSPITAL COURSE The patient is an 86-year-old female with a partially obstructing ascending colon cancer with no liver metastases. She was admitted on October 26, 2016, after an outpatient bowel prep. She was taken to the operating room, where she underwent the above named procedures. Intraoperative findings included a moderate size near obstructing tumor in the proximal ascending colon. Postoperatively she did well with fairly rapid return of bowel and bladder function. She was ready for discharge on postoperative day #4, but waited an additional three days for placement at an inpatient rehab facility. She was discharged home on November 01, 2016 with instructions to follow-up myself with myself in the office. MD KATYA Robledo/MILA /5:21 PM /10:22 PM MTDAdelso
== END 2016-11-01 22:33 | DRG 330 ==
LOC: HSDI 11:00 → HCIS 19:55 → N07B 10-28 22:24
PROVIDERS: ADMIT Colon & Rectal Surgery; ATTEND Colon & Rectal Surgery
PROC: 8E0W4CZ Robotic Assisted Procedure of Trunk Region, Percutaneous Endoscopic Approach (ICD-10-PCS; 2016-10-26)
PROC: 0DTK4ZZ Resection of Ascending Colon, Percutaneous Endoscopic Approach (ICD-10-PCS; principal; 2016-10-26 13:37)
DX: C18.2 Malignant neoplasm of ascending colon (principal); C78.7 Secondary malignant neoplasm of liver and intrahepatic bile duct
CPT/HCPCS: 80048; 85025; 86850; 86900; 86901; 88309; 94150; C9113; J0131; J0690; J1100; J1200; J1644; J1885; J2250; J2270; J2370; J2405; J3010; J3480; J7120